=== PATIENT | male | born 1985 | race African-American/Black ===

== ENCOUNTER 2018-08-03 13:43 | Emergency (ER) | payer OTHER, BC ==
[~2018-08-03] VITALS: Ht 172.7 cm; Wt 73.9 kg
[2018-08-03] MEDS ORDERED: KETOROLAC TROME10 MG PO (14:16)
[2018-08-03] MEDS ORDERED: NORCO 5-325 TA1 EACH PO (14:16)
[2018-08-03] MEDS ORDERED: BACLOFEN10 MG PO (14:16)
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
== END 2018-08-03 14:25 | disposition home or self-care (01) ==
LOC: ED 13:43
DX: S39.012A Strain of muscle, fascia and tendon of lower back, initial encounter (principal); V89.2XXA Person injured in unspecified motor-vehicle accident, traffic, initial encounter
CPT/HCPCS: 99283